=== PATIENT | female | born 1940 | race Caucasian/White ===

== ENCOUNTER → 2018-05-04 09:09 | Outpatient (CLI) | payer MEDICARE, SELFPAY ==
--- NOTE | 2018-05-04 | DI.MG.S_ITS ---
BILATERAL DIGITAL SCREENING MAMMOGRAM 3D/2D WITH CAD: 05/04/2018 CLINICAL: Routine screening. Family history of breast cancer. Comparison is made to exams dated: 04/16/2017 mammogram, 04/15/2016 mammogram, and 04/11/2015 mammogram - [facility]. There are scattered fibroglandular elements in both breasts. Current study was also evaluated with a Computer Aided Detection (CAD) system. No significant masses, calcifications, or other findings are seen in either breast. There has been no significant interval change. IMPRESSION: NEGATIVE There is no mammographic evidence of malignancy. A 1 year screening mammogram is recommended. This exam was interpreted at Station ID: [id number]. NOTE: For mammograms, a report in lay terms will be sent to the patient. Approximately 15% of breast malignancies will not be visualized mammographically. In the management of a palpable breast mass, a negative mammogram must not discourage biopsy of a clinically suspicious lesion. Electronically Signed By: Nick wu/mayela:05/04/2018 09:49:29 letter sent: Normal Exam ACR BI-RADS Category 1: Negative 3341F
== END ==
PROVIDERS: Family Provider Family Medicine; PCP Family Medicine; Visit Provider Family Medicine
DX: Z12.31 Encounter for screening mammogram for malignant neoplasm of breast (principal); Z80.3 Family history of malignant neoplasm of breast
CPT/HCPCS: 77063; 77067

== ENCOUNTER → 2018-08-27 14:51 | Outpatient (CLI) | payer MEDICARE, SELFPAY ==
--- NOTE | 2018-08-27 | DI.RAD.S_ITS ---
PROCEDURE: XR THORACIC SPINE 3V INDICATIONS: COMPRESSION FRACTURE TECHNIQUE: 2 views of the thoracic spine were acquired. COMPARISON: [facility], CT, PE STUDY (CTA CHEST), 11/27/2012, 14:17. [facility], CR, XR LUMBAR SPINE 2-3V, 08/27/2018, 14:44. FINDINGS: Bones: No fractures or dislocations. No suspicious bony lesions. 12 pairs of ribs are noted, and appear intact where visualized. T10 vertebral height reduction, chronicity uncertain, with the current vertebral heights 35% less at T10 than at the level immediately below. Soft tissues: No paravertebral stripe thickening. IMPRESSION: There is a reduction in the vertebral height of T10, chronicity uncertain, with a 35% height reduction at T10 when compared to T11. MR scanning can accurately assess for chronicity of this injury. No osteolytic or blastic bone lesion is associated. Dictated by: Lawrence Olmos M.D. on 08/27/2018 at 15:48 Approved by: Lawrence Olmos M.D. on 08/27/2018 at 15:52
--- NOTE | 2018-08-27 | DI.RAD.S_ITS ---
PROCEDURE: XR LUMBAR SPINE 2-3V INDICATIONS: COMPRESSION FRACTURE TECHNIQUE: 3 views of the lumbar spine were acquired. COMPARISON: None. FINDINGS: Bones: 5 [id number] vertebrae are present. There is normal bony alignment. No vertebral body compression fractures. No suspicious bony lesions. Soft tissues: Overlying bowel gas pattern is normal. No suspicious soft tissue calcifications. IMPRESSION: Only a small degree of degenerative disc disease and facet osteoarthritis is present and no compression fractures found. Please also refer to the thoracic spine study from today identifying a 35% T10 vertebral height reduction, but chronicity is uncertain . Dictated by: Lawrence Olmos M.D. on 08/27/2018 at 15:52 Approved by: Lawrence Olmos M.D. on 08/27/2018 at 15:53
== END ==
PROVIDERS: Family Provider Family Medicine; PCP Family Medicine; Visit Provider Chiropractor
DX: M51.36 Other intervertebral disc degeneration, lumbar region (principal); M47.816 Spondylosis without myelopathy or radiculopathy, lumbar region
CPT/HCPCS: 72072; 72100

== ENCOUNTER → 2018-09-30 10:02 | Outpatient (CLI) | payer MEDICARE, SELFPAY ==
--- NOTE | 2018-09-30 | DI.RAD.S_ITS ---
PROCEDURE: XR THORACIC SPINE 2V INDICATIONS: BACK PAIN FOLLOW UP T10 FRACTURE TECHNIQUE: 2 views of the thoracic spine were acquired. COMPARISON: [facility] [place], CR, XR THORACOLUMBAR SPINE 2 VIEWS, 09/15/2018, 8:41. [facility], CR, XR THORACIC SPINE 3V, 08/27/2018, 14:44. FINDINGS: Bones: No previously unidentified fractures or dislocations. The moderate compression fracture at T10 has not appreciably worsened from the comparison study in August when it was first identified. No suspicious bony lesions. 12 pairs of ribs are noted, and appear intact where visualized. Slight convex leftward scoliosis centered at the junction of the middle and lower thirds of the thoracic spine is again seen. Soft tissues: No paravertebral stripe thickening. IMPRESSION: T10 moderate compression fracture stable over time, no new trauma found. Mild convex leftward scoliosis centered at the junction of the middle and lower thirds of the thoracic spine appears stable. Dictated by: Lawrence Olmos M.D. on 09/30/2018 at 10:38 Approved by: Lawrence Olmos M.D. on 09/30/2018 at 10:40
== END ==
PROVIDERS: Family Provider Family Medicine; PCP Family Medicine; Visit Provider Family Medicine
DX: M54.6 Pain in thoracic spine (principal); M41.84 Other forms of scoliosis, thoracic region; M48.54XS Collapsed vertebra, not elsewhere classified, thoracic region, sequela of fracture
CPT/HCPCS: 72070

== ENCOUNTER → 2019-07-15 10:18 | Outpatient (CLI) | payer MEDICARE, SELFPAY ==
--- NOTE | 2019-07-15 | DI.MG.S_ITS ---
BILATERAL DIGITAL SCREENING MAMMOGRAM 3D/2D WITH CAD: 07/15/2019 CLINICAL: Routine screening. Family history of breast cancer. Comparison is made to exams dated: 05/04/2018 mammogram, 04/16/2017 mammogram, 04/15/2016 mammogram, 04/11/2015 mammogram, and 04/06/2014 mammogram - [facility]. There are scattered fibroglandular elements in both breasts. Current study was also evaluated with a Computer Aided Detection (CAD) system. No significant masses, calcifications, or other findings are seen in either breast. There has been no significant interval change. IMPRESSION: NEGATIVE There is no mammographic evidence of malignancy. A 1 year screening mammogram is recommended. This exam was interpreted at Station ID: [id number]. NOTE: For mammograms, a report in lay terms will be sent to the patient. Approximately 15% of breast malignancies will not be visualized mammographically. In the management of a palpable breast mass, a negative mammogram must not discourage biopsy of a clinically suspicious lesion. Electronically Signed By: Alfie gaming/mayela:07/15/2019 12:10:37 letter sent: Normal Exam ACR BI-RADS Category 1: Negative 3341F
== END ==
PROVIDERS: PCP Family Medicine; Visit Provider Family Medicine
DX: Z12.31 Encounter for screening mammogram for malignant neoplasm of breast (principal); Z80.3 Family history of malignant neoplasm of breast
CPT/HCPCS: 77063; 77067

== ENCOUNTER → 2020-10-06 14:58 | Outpatient (CLI) | payer MEDICARE, SELFPAY ==
--- NOTE | 2020-10-06 15:15 | DI.MG.S_ITS ---
Patient Name: JOSELITO MATHIAS date: 1940 Sex: F Attending Physician: Dionicio Indications: Date: 10/06/2020 15:07 At the request of: JEWEL VALENTE Procedure: MM screening mammo BI BILATERAL DIGITAL SCREENING MAMMOGRAM 3D/2D WITH CAD: 10/06/2020 CLINICAL: Routine screening. Family history of breast cancer. Comparison is made to exams dated: 07/15/2019 mammogram, 05/04/2018 mammogram, 04/16/2017 mammogram, 04/15/2016 mammogram, and 04/11/2015 mammogram - [facility]. There are scattered fibroglandular elements in both breasts. Current study was also evaluated with a Computer Aided Detection (CAD) system. No significant masses, calcifications, or other findings are seen in either breast. There has been no significant interval change. IMPRESSION: NEGATIVE There is no mammographic evidence of malignancy. A 1 year screening mammogram is recommended. This exam was interpreted at Station ID: [id number]. NOTE: For mammograms, a report in lay terms will be sent to the patient. Approximately 15% of breast malignancies will not be visualized mammographically. In the management of a palpable breast mass, a negative mammogram must not discourage biopsy of a clinically suspicious lesion. Electronically Signed By: Edmundo melgoza/mayela:10/08/2020 07:58:31 letter sent: Normal Exam ACR BI-RADS Category 1: Negative 3341F
== END ==
PROVIDERS: PCP Family Medicine; Referring Provider Family Medicine; Visit Provider Family Medicine
DX: Z12.31 Encounter for screening mammogram for malignant neoplasm of breast (principal)
CPT/HCPCS: 77063; 77067

== ENCOUNTER → 2021-01-03 08:09 | Outpatient (CLI) | payer MEDICARE, SELFPAY ==
--- NOTE | 2021-01-03 | DI.RAD.S_ITS ---
PROCEDURE: XR RIBS RT MIN 3V W CXR 1V INDICATIONS: RIGHT RIB PAIN TECHNIQUE: 3 views of the right ribs were acquired, along with a single view chest. COMPARISON: None. FINDINGS: Surgical changes and devices: None. Bones and chest wall: No fractures or dislocations. No suspicious bony lesions. Overlying soft tissues appear unremarkable. Lungs and pleura: No pleural effusions or pneumothorax. Lungs appear clear. Mediastinum: Mediastinal contours appear normal. Heart size is normal. IMPRESSION: No right rib fracture identified. Dictated by: Krishna Doherty M.D. on 01/03/2021 at 8:30 Approved by: Krishna Doherty M.D. on 01/03/2021 at 8:32
--- NOTE | 2021-01-03 | DI.MRI.S_ITS ---
PROCEDURE: MR LUMBAR SPINE WO CON INDICATIONS: Pain in right leg TECHNIQUE: Noncontrast sagittal T1 spin echo and T2 fast echo, sagittal STIR, axial T1 and T2 fast spin echo through the lumbar spine. In cases with scoliosis, additional coronal T2 fast spin echo may be performed. COMPARISON: [facility] [place], CR, XR THORACOLUMBAR SPINE 2 VIEWS, 11/19/2018, 16:07. [facility], , L-SPINE WITHOUT CONTRAST, 07/26/2008, 20:41. FINDINGS: Image quality: Excellent. Alignment and Curvature: There is grade 1 anterolisthesis of L5 on S1 measuring 2 mm. Bone Marrow: Marrow is of normal overall signal. Increased T1-T2 signal is noted T12 consistent with hemangioma and unchanged. No acute vertebral body compression fractures. Spinal Cord: Conus medullaris terminates at the L1 level. Visualized cord demonstrates normal signal and size. 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 Paraspinous Soft Tissues: No paravertebral masses. Discs: Mild moderate desiccation is present throughout the lumbar spine most notable at L5-S1. L1-L2: No disc bulge, spinal stenosis or foraminal narrowing. Mild facet and ligamentum flavum hypertrophy. Minimal epidural lipomatosis. Minimal interval progression. L2-L3: No disc bulge, spinal stenosis or foraminal narrowing. Mild facet and ligamentum flavum hypertrophy as well as minimal epidural lipomatosis. Minimal interval progression. L3-L4: Minimal disc bulge without spinal stenosis or foraminal narrowing. Facet and ligamentum flavum hypertrophy as well as minimal epidural lipomatosis is present. Minimal interval progression. L4-L5: Mild disc bulge with minimal canal narrowing. Minimal to mild bilateral foraminal narrowing with facet and ligamentum flavum hypertrophy. No interval change. L5-S1: Minimal disc bulge without spinal stenosis. Minimal to mild bilateral foraminal narrowing. Minimal interval progression. IMPRESSION: 1. Multilevel degenerative changes demonstrating minimal areas of interval progression compared to 2007 as above. 2. Minimal canal narrowing is noted at L4-5 secondary to disc bulge. 3. Minimal to mild foraminal narrowing is noted at L4-5 and L5-S1 secondary to facet arthropathy. Dictated by: Gayle Palacio M.D. on 01/03/2021 at 9:28 Approved by: Gayle Palacio M.D. on 01/03/2021 at 9:40
== END ==
PROVIDERS: PCP Family Medicine; Referring Provider Family Medicine; Visit Provider Family Medicine
DX: M79.604 Pain in right leg (principal); M47.816 Spondylosis without myelopathy or radiculopathy, lumbar region; R07.81 Pleurodynia
CPT/HCPCS: 71101; 72148

== ENCOUNTER → 2021-02-20 09:22 | Outpatient (CLI) | payer MEDICARE, SELFPAY ==
[2021-02-20 11:37] LABS: COVID19 -Nasal RAPID Negative (Negative)
== END ==
PROVIDERS: PCP Family Medicine; Visit Provider Physician Assistant
DX: Z01.812 Encounter for preprocedural laboratory examination (principal); Z20.822 Contact with and (suspected) exposure to COVID-19
CPT/HCPCS: 87635; C9803

== ENCOUNTER 2021-02-22 13:32 | Day surgery (SDC) | payer MEDICARE, SELFPAY ==
--- NOTE | 2021-02-22 | PATH_ITS ---
[facility] Accession Number: [id number] . 01 Material submitted: . cecum - CECAL POLYP 3MM . 02 Diagnosis: Cecum, Polyp 3 mm, Biopsy: Tubular adenoma. [facility] 02/26/2021 1536 Local . 02 Electronically signed: . Georgie Ramirez MD, Pathologist NPI- [id number] . 01 Gross description: . CECAL POLYP 3MM: Received in formalin is 1 fragment(s) of paris, soft tissue measuring 0.4 x 0.3 x 0.2 cm submitted entirely in 1 cassette(s) /QBJ 02/23/2021 0443 Local . 02 Pathologist provided ICD-10: D12.0 . 02 CPT . 817396 Performed at: 01 [facility] [address] [place] [address], [place], [place] [id number] MD Nick Fajardo MD Phone: [phone] Performed at: 02 [facility] [address] [place], [place] [id number] MD Georgie Ramirez MD Phone: [phone]
--- NOTE | 2021-02-22 12:03 | P.HP_ITS ---
History of Present Illness History of Present Illness Date Patient Seen: 02/22/21 Chief complaint: SDC Narrative: 80 year old female comes in today for consideration of a screening colonoscopy. One prior colonoscopy approximately 10 years ago, normal. There have been no lower GI symptoms suggesting disease such as change in bowel habits, bleeding, abdominal pain or anemia. There's been no family history of colon cancer or colon polyps. Overall health issues have been stable, including no major cardiac events for at least 6 weeks. PCP: Dr. Greenberg Past medical history: Erythema multiforme Hoarseness Pronation syndrome Lichen sclerosis Migraine Hyperlipidemia Scoliosis Degenerative joint disease Osteoporosis GERD Menopause Herpes labialis Past surgical history: Tonsillectomy Total hysterectomy with bilateral salpingo-oophorectomy, 1980 Mohs procedure, basal cell, 2016 Colonoscopy Family history: Father:, alcoholism, hypertension, coronary artery disease Mother: ALS Social history: to [place], 3 children. Works as a clerk travel reservations. Patient History Medical History (Updated 02/22/21 @ 13:35 by Caitlin Burgess RN) H/O migraine Lichen sclerosus Surgical History (Updated 02/22/21 @ 13:34 by Caitlin Burgess RN) H/O total hysterectomy with bilateral salpingo-oophorectomy (BSO) Hx of tonsillectomy Status post dilation and curettage Status post hysterectomy with oophorectomy Status post tonsillectomy and adenoidectomy Meds Home Medications and Allergies Home Medications Medication Instructions Recorded Confirmed Type estradiol 0.5 mg PO QDAY #0 11/27/12 02/22/21 History esomeprazole magnesium 40 mg PO DAILY 02/22/21 02/22/21 History zoledronic [id number] See Rx Instructions .ROUTE .COMPLEX 02/22/21 02/22/21 History [Reclast] Allergies Allergy/AdvReac Type Severity Reaction Status Date / Time cyclobenzaprine Allergy Unknown Verified 02/22/21 13:46 loperamide [From Imodium A-D] Allergy Unknown Verified 02/22/21 13:46 adhesive tape AdvReac Severe Rash Verified 02/22/21 13:46 METHIOLADE/IODINE TOPICAL Allergy Severe RASH Uncoded 02/22/21 13:46 Review of Systems Review of Systems ROS: Yes All systems reviewed with the patient and are negative except as otherwise documented Exam Narrative Exam Narrative: GENERAL: Alert and oriented, appearing stated age and in no acute distress. HEENT: Head normocephalic/atraumatic. Pupils equal, round, and reactive to light and accomodation. Extraocular muscles intact. Tympanic membranes clear. Nasal mucosa moist, septum midline. Oral mucosa moist, no lesions. Neck soft and supple, no lymphadenopathy. LUNGS: Clear to ausculation bilaterally, no wheezes, rhonchi or rales. CV: Normal S1 and S2 with regular rate and rhythm, no audible murmurs, rubs or gallops. ABDOMEN: Soft, non-tender, non-distended, no organomegaly. Positive bowel sounds. EXTREMITIES: No clubbing, cyanosis, or edema. NEURO: Cranial nerves II through XII grossly intact, no focal deficits. PSYCH: Alert and oriented x 3. SKIN: No concerning lesions. Assessment & Plan Assessment & Plan narrative: 1. Screening for colon cancer Plan for colonoscopy. The nature and character of the procedure as well as anticipated results were discussed. The possibility of not completing the procedure was also discussed. Possible complications including aspiration pneumonia, bleeding, perforation and reaction to medications either for sedation or preparation and missed lesions were discussed. Questions were answered and proceeding to the colonoscopy was elected. Informed consent signed. I sincerely appreciate the referral allowing me to participate in this patient's care. Please contact me with any questions or concerns.
--- NOTE | 2021-02-22 12:10 | PM.OP.ENDO ---
Operative Date/Time/Diagnoses Date of procedure: 02/22/21 Procedure Notes SCOAP/Timeout: 4:21 p.m. Procedure in detail: ENDOSCOPIST: Katrina Eckert MD Sedation RN: Cristiano Zavaleta RN Sedation start time: 4:22 p.m. Sedation end time: 4:47 p.m. PROCEDURE: Colonoscopy with biopsy INDICATIONS: 1. Screening for colon cancer MEDICATION: Levsin 0.125 mg sublingual, incremental doses of Versed and fentanyl until appropriate level sedation achieved. ASA CLASS: 2 CECAL WITHDRAWAL TIME: 8 minutes COMPLICATIONS: None. EXTENT OF PROCEDURE: Cecum. QUALITY OF PREP: Good with portions of liquid stool. PROCEDURE: Prior to insertion of the colonoscope, a digital rectal examination was accomplished with circumferential palpation of the distal rectal mucosa without significant findings being noted. The high-definition pediatric colonoscope was passed into the rectum in the usual fashion and advanced over to the cecum without difficulty. The ileocecal valve, appendiceal stoma, and medial wall all could be inspected and a 3 mm polyp was seen and removed with cold biopsy forceps. ASCENDING COLON: As the colonoscope was withdrawn, care was taken to expose and inspect the haustral folds and no abnormalities were seen. HEPATIC FLEXURE: Normal, no polyps, diverticula or other abnormalities. TRANSVERSE COLON: Normal, no polyps, diverticula or other abnormalities. DESCENDING COLON: Normal, no polyps, diverticula or other abnormalities. SIGMOID COLON: Normal, no polyps, diverticula or other abnormalities. RECTUM: Normal. J maneuver was produced. There was no significant perianal disease. The J maneuver was broken. The remainder of the rectum was inspected and there was no external hemorrhoid disease. The scope was withdrawn. IMPRESSION: 1. Cecal polyp x1, 3 mm, removed with cold biopsy forceps PLAN: 1. Follow-up in clinic status post pathology results. The possibility of a missed lesion including a malignancy has been discussed with the patient previously. Potential alarm symptoms have been discussed and should be reported immediately.
[2021-02-22] MEDS: HYOSCYAMINE 0.125 MG TABLET PO (13:49)
[2021-02-22] MEDS: LACTATED RINGERS 1,000 ML 200 ML IV (13:57)
[2021-02-22 13:58] VITALS: BP 158/93; PULSE 88; RESP 14; TEMP 36.2; O2SAT 99; BMI 22.6
[2021-02-22] MEDS: MIDAZOLAM 5 MG/5 ML VIAL IV (16:50)
[2021-02-22 16:51] VITALS: BP 135/63; PULSE 82; RESP 18; TEMP 36.7; O2SAT 94
[2021-02-22] MEDS: fentaNYL 250 MCG/5 ML INJ IV (16:51)
[2021-02-22 16:56] VITALS: BP 136/64; PULSE 71; RESP 10; O2SAT 94
[2021-02-22 17:02] VITALS: BP 134/62; PULSE 80; RESP 14; O2SAT 96
[2021-02-22 17:09] VITALS: BP 152/81; PULSE 70; RESP 16; TEMP 36.8; O2SAT 96
== END 2021-02-22 17:20 | disposition home or self-care (01) ==
PROVIDERS: PCP Family Medicine; Referring Provider Student in an Organized Health Care Education/Training Program; Visit Provider Student in an Organized Health Care Education/Training Program
PROC: 0DJD8ZZ Inspection of Lower Intestinal Tract, Via Natural or Artificial Opening Endoscopic (ICD-10-PCS; CPT 45378; principal; 2021-02-22 14:30)
DX: Z12.11 Encounter for screening for malignant neoplasm of colon (principal); D12.0 Benign neoplasm of cecum
CPT/HCPCS: 45380; J2250; J3010

== ENCOUNTER → 2021-03-21 11:18 | Outpatient (CLI) | payer MEDICARE, SELFPAY ==
--- NOTE | 2021-03-21 11:22 | DI.RAD.S_ITS ---
PROCEDURE: XR KNEE RT 3V INDICATIONS: RIGHT KNEE PAIN TECHNIQUE: 3 views of the knee were acquired. COMPARISON: [facility], , KNEE 3V RIGHT, 08/23/2012, 12:21. FINDINGS: Bones: No fractures or dislocations. No suspicious bony lesions. Mild tricompartmental periarticular osteophyte formation. Soft tissues: No joint effusion. No suspicious soft tissue calcifications. IMPRESSION: Osteoarthritis. No acute fracture. No osseous lesion. If symptoms and/or clinical suspicion for pathology persist, further assessment with repeat, or advanced imaging (e.g., CT, MRI, or bone scan) may be helpful for further assessment. Dictated by: Carlos Graves M.D. on 03/21/2021 at 16:50 Approved by: Carlos Graves M.D. on 03/21/2021 at 16:52
== END ==
PROVIDERS: PCP Family Medicine; Referring Provider Physical Medicine & Rehabilitation; Visit Provider Physical Medicine & Rehabilitation
DX: M17.11 Unilateral primary osteoarthritis, right knee (principal)
CPT/HCPCS: 73562

== ENCOUNTER 2021-03-22 12:56 | Emergency (ER) | payer MEDICARE, SELFPAY ==
[2021-03-22 12:58] VITALS: BP 168/81; PULSE 110; RESP 19; TEMP 36.2; O2SAT 96; BMI 23.2
[2021-03-22] MEDS: SODIUM CHLORIDE 0.9% 1,000 ML 1000 ML IV (13:29)
[2021-03-22 13:45] LABS: Alanine Aminotransferase 18 IU/L (<35); Albumin 4.1 g/dL (3.5-5.0); Albumin Globulin Ratio 1.5 (1.0-2.8); Alkaline Phosphatase 49 U/L (38-126); Aspartate Aminotransferase 21 IU/L (14-36); BUN Creatinine Ratio 22.7 (6-22); Bilirubin Total 0.5 mg/dL (0.2-1.3); Blood Urea Nitrogen 20 mg/dL (7-17); Calcium 9.2 mg/dL (8.4-10.2); Carbon Dioxide 18 mmol/L (22-32); Chloride 104 mmol/L (98-107); Estimated Glomerular Filt Rate > 60.0 mL/min (>60); Globulin 2.8 g/dL (1.7-4.1); Glucose 132 mg/dL (80-110); HEMOLYSIS 22 (0-50); Potassium 4.3 mmol/L (3.4-5.1); Sodium 133 mmol/L (137-145); Total Protein 6.9 g/dL (6.3-8.2)
[2021-03-22 14:09] LABS: Lactate (Lactic Acid) 2.1 mmol/L (0.7-2.1)
--- NOTE | 2021-03-22 14:10 | ED_ITS ---
HPI - Nausea/Vomiting/Diarrhea General Chief complaint: Nausea/Vomiting/Diarrhea Stated complaint: diarrhea/leg cramps/dehydrated Time Seen by Provider: 03/22/21 13:39 Source: patient and family Mode of arrival: Ambulatory Limitations: no limitations History of Present Illness HPI Narrative: Patient is a 80-year-old female who presents with diarrhea which started last night. She says this started last evening she has had multiple episodes liquid watery diarrhea. She has no abdominal pain nausea or vomiting. No low-grade fever. No sick contacts. No recent antibiotics or un peer naima water. She says since 11:00 a.m. it has slowed but she still has it. She denies dizziness lightheadedness or syncope. No chest pain or palpitations. She denies any blood. MD complaint: diarrhea Onset (ago): hour(s) Description of Diarrhea: watery Related Data Home Medications Medication Instructions Recorded Confirmed estradiol 0.5 mg PO QDAY #0 11/27/12 02/22/21 esomeprazole magnesium 40 mg PO DAILY 02/22/21 02/22/21 zoledronic [id number] See Rx Instructions .ROUTE .COMPLEX 02/22/21 02/22/21 [Reclast] Allergies Allergy/AdvReac Type Severity Reaction Status Date / Time cyclobenzaprine Allergy Unknown Verified 03/22/21 13:16 loperamide [From Imodium A-D] Allergy Unknown Verified 03/22/21 13:16 adhesive tape AdvReac Severe Rash Verified 03/22/21 13:16 METHIOLADE/IODINE TOPICAL Allergy Severe RASH Uncoded 02/22/21 13:46 Review of Systems Review of Systems Narrative: GENERAL: Denies chills, fatigue, malaise, fever, sweats, travel HEENT: Denies sinus pain, ear pain, sore throat, difficulty swallowing, neck pain RESPIRATORY: Denies dyspnea, cough, wheezing, hemoptysis, sputum. CARDIOVASCULAR: Denies chest pain, palpitations, orthopnea, edema GASTROINTESTINAL: See HP PI : Denies dysuria, frequency, incontinence, hematuria, urinary retention, flank pain. MUSCULOSKELETAL: Denies weakness, joint pain, or bony pain SKIN: No rash, no erythema, no pruritus NEUROLOGIC: Denies weakness, dizziness, headache, numbness, change in speech, confusion PSYCHIATRIC: No concerning psychosocial issues. 12 point review of systems is negative except for those stated above and HPI Patient History Medical History H/O migraine Lichen sclerosus Right knee DJD Surgical History H/O total hysterectomy with bilateral salpingo-oophorectomy (BSO) Hx of tonsillectomy Status post dilation and curettage Status post hysterectomy with oophorectomy Status post tonsillectomy and adenoidectomy Social History household members: spouse Smoking Status: Never smoker alcohol intake: current Smoking Status: Never smoker alcohol intake frequency: holidays/special occasions only Substance Use Type: does not use Exam Initial Vital Signs Initial Vital Signs: Vital Signs Temperature 97.1 F L 03/22/21 12:58 Pulse Rate 110 H 03/22/21 12:58 Respiratory Rate 19 03/22/21 12:58 Blood Pressure 168/81 H 03/22/21 12:58 Pulse Oximetry 96 03/22/21 12:58 GENERAL: Well-appearing, well-nourished and in no acute distress. HEENT: Head atraumatic,EOMI, pupils reactive, face symmetric, moist mucous membranes CARDIOVASCULAR: Regular rate and rhythm without murmurs, rubs or gallops. RESPIRATORY: Breath sounds equal bilaterally, no wheezes rales or rhonchi. ABDOMEN: Soft, nontender. Normoactive bowel sounds all 4 quadrants. No guarding or rebound. EXTREMITIES: Normal range of motion, no clubbing or edema. Neurovascularly intact NEUROLOGICAL: Alert and oriented x4.Normal gait and speech. Cranial nerves II through XII grossly intact. SKIN: Warm, dry, no laceration, no petechiae, no rashes or lesions. Course Orders Ordered: ED Orders 03/22/21 13:10 Comprehensive Metabolic Panel Stat Lactate (Lactic Acid) Stat 03/22/21 14:21 Complete Blood Count AUTO DIFF Stat Discontinued Medications Sodium Chloride (Normal Saline 0.9%) 1,000 mls @ 1,000 mls/hr IV BOLUS ONE Stop: 03/22/21 14:16 Last Infusion: 03/22/21 15:26 Dose: 0 mls/hr Documented by: Admin: 03/22/21 13:29 Dose: 1,000 mls/hr Documented by: BERNADETTE Ketorolac Tromethamine (Ketorolac 30 Mg/Ml Vial) 15 mg IV NOW ONE Stop: 03/22/21 15:27 Last Admin: 03/22/21 15:51 Dose: 15 mg Documented by: BERNADETTE Vital Signs Vital signs: Vital Signs - 8 hr 03/22/21 12:58 03/22/21 15:02 03/22/21 15:03 Temperature 97.1 F L Pulse Rate 110 H 91 H 89 Respiratory Rate 19 Blood Pressure 168/81 H 162/74 H Pulse Oximetry 96 97 97 03/22/21 15:30 03/22/21 16:00 Temperature Pulse Rate 97 H 94 H Respiratory Rate Blood Pressure 138/75 Pulse Oximetry 96 95 MDM - Nausea/Vomiting/Diarrhea Lab Data Attestation: I reviewed the patient's lab results. Result diagrams: 03/22/21 14:21 03/22/21 13:10 Labs: Lab Results 03/22/21 03/22/21 03/22/21 Range/Units 13:10 13:10 14:21 WBC 8.9 (4.5-11.0) X10^3/uL RBC 4.55 (4.0-5.2) X10^6/uL Hgb 14.5 (12.0-16.0) g/dL Hct 42.8 (36-46) % MCV 94.0 (80-100) fL MCH 31.8 (26-34) PG MCHC 33.8 (30-36) % RDW 12.8 (11.6-14.8) % Plt Count 251 (150-400) X10^3/uL Neut % (Auto) 89.8 H (50-75) % Lymph % (Auto) 4.1 L (25-40) % [place] % (Auto) 5.4 (3-14) % Eos % (Auto) 0.3 L (2-4) % Baso % (Auto) 0.4 (0-2) % Neut # (Auto) 8000 H (1137-7833) /uL Lymph # (Auto) 400 L (0755-2555) /uL [place] # (Auto) 500 (0-900) /uL Eos # (Auto) 0 (0-450) /uL Baso # (Auto) 0 (0-100) /uL Sodium 133 L (137-145) mmol/L Potassium 4.3 (3.4-5.1) mmol/L Chloride 104 (98-107) mmol/L Carbon Dioxide 18 L (22-32) mmol/L BUN 20 H (7-17) mg/dL Creatinine 0.88 (0.52-1.04) mg/dL Estimated GFR > 60.0 (>60) mL/min BUN/Creatinine Ratio 22.7 H (6-22) Glucose 132 H (80-110) mg/dL Lactate 2.1 (0.7-2.1) mmol/L Calcium 9.2 (8.4-10.2) mg/dL Total Bilirubin 0.5 (0.2-1.3) mg/dL AST 21 (14-36) IU/L ALT 18 (<35) IU/L Alkaline Phosphatase 49 (38-126) U/L Total Protein 6.9 (6.3-8.2) g/dL Albumin 4.1 (3.5-5.0) g/dL Globulin 2.8 (1.7-4.1) g/dL Albumin/Globulin Ratio 1.5 (1.0-2.8) Urine Dip Bedside Urine Glucose Negative Bedside Urine Bilirubin - Negative Bedside Urine Ketone - Negative Urine Specific [place] 1.015 Bedside Urine Occult Blood - Negative Bedside Urine pH 6.0 Bedside Urine Protein - Negative Bedside Urine Urobilinogen - Negative Bedside Urine Nitrite - Negative Bedside Urine Leukocytes - Negative Esterase MDM Narrative Medical decision making narrative: Patient has not had diarrhea while in the emergency department. CO2 slightly low 18 he is given 1 L of fluid she has urinated in the ED the. At this time recommend outpatient stool sample. She is having mild headache for which she is given Toradol for, tolerating oral fluids. At this time no further intervention required. Patient overall appears well Discharge Plan Departure Patient Disposition: Home Clinical Impression: Diarrhea Instructions: Diarrhea Activity Restrictions/Additional Instructions: 1) You have been diagnosed with diarrhea 2) What to do: Drink frequent but small amounts of fluids. If continuing to have lots of diarrhea please talk with her primary care provider in regards to outpatient stool sample. If diarrhea is becoming persistent and uncontrolled return to the emergency department I recommend Gatorade or a Gatorade-like product, as it has small amounts of sugar and salts that improve fluid retention. 3) Take medications as directed 4) Follow up with your primary care provider in 2-3 days [and follow up with ortho, urology etc] 5) Return to ER if you should have any new or worsening symptoms such as, unable to hold down fluids despite use of anti-nausea medications and the small volume oral rehydration strategy. Prescriptions: No Action estradiol 0.5 MG tablet 0.5 mg PO QDAY Qty: 0 RF: 0 esomeprazole magnesium 40 mg capsule,delayed release(DR/EC) 40 mg PO DAILY RF: 0 zoledronic [id number] [Reclast] 5 mg/100 mL Piggyback See Rx Instructions .ROUTE .COMPLEX RF: 0 Referrals: Alessandro Greenberg MD [Primary Care Provider] -
[2021-03-22 14:26] LABS: Add Manual Diff / Slide Review NO; Basophils Absolute Auto 0 /uL (0-100); Basophils Percent Auto 0.4 % (0-2); Eosinophils Absolute Auto 0 /uL (0-450); Eosinophils Percent Auto 0.3 % (2-4); Hematocrit 42.8 % (36-46); Hemoglobin 14.5 g/dL (12.0-16.0); Lymphocytes Absolute Auto 400 /uL (1100-4500); Lymphocytes Percent Auto 4.1 % (25-40); Mean Corpuscular HGB Conc 33.8 % (30-36); Mean Corpuscular Hemoglobin 31.8 PG (26-34); Monocytes Absolute Auto 500 /uL (0-900); Monocytes Percent Auto 5.4 % (3-14); Neutrophils Absolute Auto 8000 /uL (1500-7000); Neutrophils Percent Auto 89.8 % (50-75); Platelet Count 251 X10^3/uL (150-400); Red Blood Cell Count 4.55 X10^6/uL (4.0-5.2); Red Cell Distribution Width 12.8 % (11.6-14.8); White Blood Cell Count 8.9 X10^3/uL (4.5-11.0)
[2021-03-22 15:02] VITALS: PULSE 91; O2SAT 97
[2021-03-22 15:03] VITALS: BP 162/74; PULSE 89; O2SAT 97
--- NOTE | 2021-03-22 15:20 | PC.NURSE ---
Has not had diarrhea since she arrived in the ED.
[2021-03-22 15:30] VITALS: PULSE 97; O2SAT 96
[2021-03-22] MEDS: KETOROLAC 30 MG/ML VIAL 15 MG IV (15:51)
[2021-03-22 16:00] VITALS: BP 138/75; PULSE 94; O2SAT 95
[2021-03-22 16:01] LABS: Reflexed Lactate in 2 Hours Y
== END 2021-03-22 16:15 | disposition home or self-care (01) ==
PROVIDERS: Emergency Provider Emergency Medicine; PCP Family Medicine
DX: R19.7 Diarrhea, unspecified (principal)
CPT/HCPCS: 36415; 80053; 81003; 83605; 85025; 96361; 96374; 99284; J1885

== ENCOUNTER → 2021-05-03 09:12 | Outpatient (CLI) | payer MEDICARE, SELFPAY ==
--- NOTE | 2021-05-03 09:13 | DI.US.S_ITS ---
PROCEDURE: US CAROTID DOPPLER BI INDICATIONS: PVD TECHNIQUE: Color and pulse Doppler interrogation was performed of both carotid systems, with image documentation and velocity measurements. COMPARISON: [facility], , US CAROTID DOPPLER, 04/10/2004, 8:47. FINDINGS: Stenosis calculations are based on SRU (Society of Radiologists in Ultrasound) criteria. The flow velocities and the arterial waveforms are normal within both carotid arterial systems. Atherosclerotic plaque is seen on both sides, left worse than right. The estimated degree of internal carotid artery stenosis is less than 50%. Antegrade flow is confirmed within both vertebral arteries. IMPRESSION: No hemodynamically significant stenosis is seen. Stable from 2003. Atherosclerotic plaque is noted bilaterally, left worse than right. Dictated by: Ronal Esparza M.D. on 05/03/2021 at 8:50 Approved by: Ronal Esparza M.D. on 05/03/2021 at 8:51
== END ==
PROVIDERS: PCP Family Medicine; Referring Provider Family Medicine; Visit Provider Family Medicine
DX: I65.23 Occlusion and stenosis of bilateral carotid arteries (principal); I73.9 Peripheral vascular disease, unspecified
CPT/HCPCS: 93880

== ENCOUNTER → 2021-05-29 11:20 | Outpatient (CLI) | payer MEDICARE, SELFPAY ==
[2021-05-29 12:43] LABS: COVID19 -Nasal RAPID Negative (Negative)
== END ==
PROVIDERS: PCP Family Medicine; Visit Provider Physician Assistant
DX: Z01.812 Encounter for preprocedural laboratory examination (principal); Z20.822 Contact with and (suspected) exposure to COVID-19
CPT/HCPCS: 87635; C9803

== ENCOUNTER → 2021-05-31 07:39 | Outpatient (CLI) | payer MEDICARE, SELFPAY ==
--- NOTE | 2021-05-31 07:41 | DI.NM.S_ITS ---
PROCEDURE: NM IWONA PERF SPECT REST & STR Rest and exercise myocardial perfusion SPECT with gated imaging and ejection fraction RADIOPHARMACEUTICAL: 9.7 mCi Tc-99m sestamibi IV at rest and 25.5 mCi Tc-99m sestamibi IV at peak exercise. A one day-protocol was performed. INDICATIONS: Chest pain, unspecified TECHNIQUE: Radiopharmaceutical was injected at peak stress test, and also at rest. SPECT images were obtained. SPECT myocardial perfusion images were displayed in short axis, horizontal long axis, and vertical long axis views. Gated images were reviewed using [employer] software. COMPARISON: None. CARDIAC STRESS: A standard Mtahew treadmill exercise tolerance test was performed by the patient under the supervision of an attending staff. The patient exercised for 4 minutes and 47 seconds; functional aerobic impairment (ALIS) is +13%. Hemodynamic data: There is normal blood pressure and heart rate response to exercise stress. Patient achieved 87% of maximum predicted heart rate at peak exercise. Symptoms: Patient denied chest pain during exercise. EKG: Resting ECG shows sinus rhythm with T wave inversions in the anterolateral leads. No diagnostic EKG changes of ischemia with exercise; no ectopy. FINDINGS: Raw data: There is good myocardial labeling by radiotracer. No significant motion artifacts. Left ventricle function: Gated images demonstrate normal left ventricle wall thickening. No segmental wall motion abnormality. No transient ischemic dilation; TID is 0.79 (normal less than 1.3). The left ventricle resting end-diastolic volume is 62 mL. Left ventricle stress ejection fraction is 89%; normal values are above 45%. Myocardial perfusion: There is normal perfusion on stress prone images. IMPRESSION: Low risk, normal treadmill nuclear stress test. 1) No perfusion evidence of ischemia or infarction. 2) Normal left ventricular size, wall motion, and systolic function (EF post stress 89%). 3) No ECG evidence of ischemia with exercise. 4) No angina during the study. 5) Mildly reduced exercise capacity (5.7 METs, ALIS +13%). Target heat rate achieved. Appropriate BP response to exercise. 6) No prior nuclear stress test available for comparison. Dictated by: Sam Puente MD on 06/01/2021 at 9:40 Approved by: Sam Puente MD on 06/01/2021 at 9:44
== END ==
PROVIDERS: PCP Family Medicine; Referring Provider Family Medicine; Visit Provider Family Medicine
DX: R07.9 Chest pain, unspecified (principal)
CPT/HCPCS: 78452; 93017; A9502

== ENCOUNTER 2021-06-09 14:37 | Emergency (ER) | payer MEDICARE, SELFPAY ==
[2021-06-09 14:40] VITALS: BP 181/87; PULSE 94; RESP 16; TEMP 36.4; O2SAT 99
--- NOTE | 2021-06-09 15:08 | DI.US.S_ITS ---
PROCEDURE: US PERIPH VENOUS LOW EXTREM RT INDICATIONS: SWELLING POST SURGERY TECHNIQUE: Real-time imaging, as well as color and pulse Doppler interrogation, were performed of the lower extremity deep veins from the inguinal ligament to the popliteal fossa. COMPARISON: None. FINDINGS: The common femoral, femoral and popliteal veins are normally compressible, and free of intraluminal thrombus. Color and pulse Doppler demonstrate normal phasic intraluminal flow. There is normal augmentation response to distal compression maneuver. Mild soft tissue edema can be seen involving the calf/ankle. IMPRESSION: Negative for deep venous thrombosis. Dictated by: Ronal Esparza M.D. on 06/09/2021 at 15:50 Approved by: Ronal Esparza M.D. on 06/09/2021 at 15:51
--- NOTE | 2021-06-09 16:08 | ED.EXTPRO ---
HPI - Extremity Problem General Chief complaint: Extremity Problem,Nontraumatic Stated complaint: SWOLLEN LEG, POST SURGERY Time Seen by Provider: 06/09/21 15:01 Source: patient and family Mode of arrival: Ambulatory History of Present Illness HPI Narrative: Patient is a 80-year-old female who presents with peripheral vascular disease and recent stent in her right iliac artery. She had a procedure 2 days ago, she was released that afternoon. She has gone home and gone about her activities. She is taking it easy. She has noticed some swelling in her right foot. He she called the vascular surgeon on-call recommended she come to the emergency department for rule out DVT. She has no calf pain or swelling. She has no fever there is no erythema at the sites. She has no fever. She generally feels well. Related Data Home Medications Medication Instructions Recorded Confirmed estradiol 0.5 mg tablet 0.5 mg PO QDAY #0 11/27/12 05/15/21 esomeprazole magnesium 40 mg 40 mg PO DAILY 02/22/21 05/15/21 capsule,delayed release zoledronic acid 5 mg/100 mL in See Rx Instructions .ROUTE .COMPLEX 02/22/21 05/15/21 mannitol 5 %-water intravenous piggybck (Reclast) Allergies Allergy/AdvReac Type Severity Reaction Status Date / Time cyclobenzaprine Allergy Unknown Verified 05/15/21 09:45 loperamide [From Imodium A-D] Allergy Unknown Verified 05/15/21 09:45 adhesive tape AdvReac Severe Rash Verified 05/15/21 09:45 METHIOLADE/IODINE TOPICAL Allergy Severe RASH Uncoded 05/15/21 09:45 Review of Systems Review of Systems Narrative: GENERAL: Denies chills, fatigue, malaise, fever, sweats, travel HEENT: Denies sinus pain, ear pain, sore throat, difficulty swallowing, neck pain RESPIRATORY: Denies dyspnea, cough, wheezing, hemoptysis, sputum. CARDIOVASCULAR: Denies chest pain, palpitations, orthopnea, edema GASTROINTESTINAL: Denies nausea, vomiting, abdominal pain, diarrhea, constipation, melena. : Denies dysuria, frequency, incontinence, hematuria, urinary retention, flank pain. MUSCULOSKELETAL: See HPI SKIN: No rash, no erythema, no pruritus NEUROLOGIC: Denies weakness, dizziness, headache, numbness, change in speech, confusion PSYCHIATRIC: No concerning psychosocial issues. 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 Vascular claudication Surgical History H/O total hysterectomy with bilateral salpingo-oophorectomy (BSO) Hx of tonsillectomy Status post dilation and curettage Status post hysterectomy with oophorectomy Status post tonsillectomy and adenoidectomy Social History household members: spouse Smoking Status: Never smoker alcohol intake: current Smoking Status: Never smoker alcohol intake frequency: holidays/special occasions only Substance Use Type: does not use Exam Initial Vital Signs Initial Vital Signs: Vital Signs Temperature 97.6 F 06/09/21 14:40 Pulse Rate 94 H 06/09/21 14:40 Respiratory Rate 16 06/09/21 14:40 Blood Pressure 181/87 H 06/09/21 14:40 Pulse Oximetry 99 06/09/21 14:40 GENERAL: Well-appearing 80-year-old female and in no acute distress. HEENT: Head atraumatic,EOMI, pupils reactive, face symmetric, moist mucous membranes CARDIOVASCULAR: Regular rate and rhythm without murmurs, rubs or gallops. RESPIRATORY: Breath sounds equal bilaterally, no wheezes rales or rhonchi. ABDOMEN: Soft, nontender. Normoactive bowel sounds all 4 quadrants. No guarding or rebound. EXTREMITIES: Normal range of motion, no clubbing or edema. Neurovascularly intact NEUROLOGICAL: Alert and oriented x4. SKIN: Warm, dry, no laceration, no petechiae, no rashes or lesions. Site in right groin dressing in place no surrounding erythema no saturation of the band Course Orders Ordered: ED Orders 06/09/21 15:08 US periph venous low extrem rt Stat Vital Signs Vital signs: Vital Signs - 8 hr 06/09/21 14:40 Temperature 97.6 F Pulse Rate 94 H Respiratory Rate 16 Blood Pressure 181/87 H Pulse Oximetry 99 MDM - Extremity (Nontraumatic) Imaging Data US - DVT: Radiologist's Impression: PROCEDURE: US PERIPH VENOUS LOW EXTREM RT INDICATIONS: SWELLING POST SURGERY TECHNIQUE: Real-time imaging, as well as color and pulse Doppler interrogation, were performed of the lower extremity deep veins from the inguinal ligament to the popliteal fossa. COMPARISON: None. FINDINGS: The common femoral, femoral and popliteal veins are normally compressible, and free of intraluminal thrombus. Color and pulse Doppler demonstrate normal phasic intraluminal flow. There is normal augmentation response to distal compression maneuver. Mild soft tissue edema can be seen involving the calf/ankle. IMPRESSION: Negative for deep venous thrombosis. Dictated by: Ronal Esparza M.D. on 06/09/2021 at 15:50 MDM Narrative Medical decision making narrative: Patient has a good strong distal pedal pulse. Incision site is clean and dry no erythema. Calf is soft no sign of compartment syndrome. She really has very minimal swelling if any in her right lower leg most of it seems in the ankle and the foot. [id number] vascular surgery at [place] updated on patient's his test results. Recommend outpatient follow-up Discharge Plan Departure Patient Disposition: Home Clinical Impression: Edema of right lower extremity Instructions: Edema Activity Restrictions/Additional Instructions: *You have been diagnosed with lower extremity edema *What to do: At this time he has a good strong pulse in her foot which is rate. There is no blood clot noted in your leg. Elevate and ice as needed. *Continue to take medications as directed *Follow up with your primary care provider in 2-3 days *Return to ER if you should have increasing swelling, pain, fever, redness, shortness of breath or any new, worsening or concerning symptoms Prescriptions: No Action estradiol 0.5 MG tablet 0.5 mg PO QDAY Qty: 0 RF: 0 esomeprazole magnesium 40 mg capsule,delayed release(DR/EC) 40 mg PO DAILY RF: 0 zoledronic [id number] [Reclast] 5 mg/100 mL Piggyback See Rx Instructions .ROUTE .COMPLEX RF: 0 Referrals: Alessandro Greenberg MD [Primary Care Provider] -
== END 2021-06-09 17:24 | disposition home or self-care (01) ==
PROVIDERS: Emergency Provider Emergency Medicine; PCP Family Medicine
DX: R60.0 Localized edema (principal); Z98.890 Other specified postprocedural states
CPT/HCPCS: 93971; 99281; 99283

== ENCOUNTER → 2021-06-20 12:19 | Outpatient (CLI) | payer MEDICARE, SELFPAY ==
--- NOTE | 2021-06-20 | DI.RAD.S_ITS ---
PROCEDURE: XR CHEST 2V INDICATIONS: Dyspnea, unspecified TECHNIQUE: 2 views of the chest were acquired. COMPARISON: [facility], CT, PE STUDY (CTA CHEST), 11/27/2012, 14:17. [facility] [place], CR, XR THORACOLUMBAR SPINE 2 VIEWS, 10/22/2018, 13:26. [facility] [place], CR, XR THORACOLUMBAR SPINE 2 VIEWS, 11/19/2018, 16:07. [facility], CR, CHEST 2 VIEW, 11/27/2012, 13:21. FINDINGS: Surgical changes and devices: None. Lungs and pleura: Lungs are clear. No pleural effusions or pneumothorax. Mediastinum: Mediastinal contours are normal. Heart size is normal. Bones and chest wall: Age-indeterminate compression fracture of the T10 vertebral body is new when compared to the remote prior CT pulmonary angiogram from 11/27/2012. No suspicious bony abnormalities. Soft tissues appear unremarkable. IMPRESSION: 1. No acute cardiopulmonary disease. 2. Age indeterminate compression fracture of the T10 vertebral body. Dictated by: Gasper Chaudhary Tom Interpreted: Edil Wheeler MD on 06/20/2021 at 12:34 Transcribed by: ROSEANNA on 06/20/2021 at 12:36 Approved by: Edil Wheeler M.D. on 06/20/2021 at 13:08
== END ==
PROVIDERS: PCP Family Medicine; Referring Provider Family Medicine; Visit Provider Family Medicine
DX: R06.00 Dyspnea, unspecified (principal); M48.54XA Collapsed vertebra, not elsewhere classified, thoracic region, initial encounter for fracture
CPT/HCPCS: 71046

== ENCOUNTER → 2021-06-26 09:33 | Outpatient (CLI) | payer MEDICARE, SELFPAY ==
[2021-06-26 10:28] LABS: COVID19 -Nasal RAPID Negative (Negative)
== END ==
PROVIDERS: PCP Family Medicine; Referring Provider Internal Medicine; Visit Provider Internal Medicine
DX: Z20.822 Contact with and (suspected) exposure to COVID-19 (principal)
CPT/HCPCS: 87635; C9803

== ENCOUNTER → 2021-06-27 08:48 | Outpatient (CLI) | payer MEDICARE, SELFPAY ==
--- NOTE | 2021-07-03 11:24 | PM.PFT.1 ---
Pulmonary Function Test Referral & Results Date Patient Seen: 06/27/21 Requesting provider: Alessandro Greenberg Results: The spirometry demonstrates an FVC of 2.01 L which is 92% of predicted. The FEV1 was measured at 1.65 L which is 102% of predicted. The FEV1/FVC ratio was 82 which is 110% of predicted. Following the administration of bronchodilator there was no appreciable change to above normal numbers. Lung volumes show an SVC of 2.40 L which is 105% of predicted. The diffusing capacity was measured at 13.31 which is 70% of predicted. No hemoglobin value was provided, so no correction for potential anemia could be made, if appropriate. The maximum voluntary ventilation was normal Interpretation: This study demonstrates normal spirometry but mild reduction in diffusing capacity suggesting the possibility of some disease at the capillary alveolar level Clinical correlation suggested
== END ==
PROVIDERS: PCP Family Medicine; Referring Provider Family Medicine; Visit Provider Family Medicine
DX: R06.09 Other forms of dyspnea (principal)
CPT/HCPCS: 94060; 94726; 94729

== ENCOUNTER → 2021-07-23 13:45 | Outpatient (CLI) | payer MEDICARE, SELFPAY ==
--- NOTE | 2021-07-23 | DI.ECHO.S_ITS ---
Version: 1 Study ID: [id number] [address] [place] [address] Name: JOSELITO MATHIAS Study Date: 07/23/2021, 2: 01 PM : 1940 BP: 142 / 85 mmHg Gender: Female Height: 60 in Age: 81 Years Weight: 122 lb BSA: 1.51 mA? Ordering: JEWEL VALENTE Referring: JEWEL VALENTE Clinician: Eloina Marte Reason For Study: HYPERTENSION History: Summary Statements Normal sinus rhythm. Normal LV size, wall thickness, wall motion and LV systolic function. EF is 60-65%. Stage I diastolic dysfunction. Mildly dilated left atrium; otherwise normal chamber sizes. Mild aortic regurgitation; otherwise no significant valvular abnormalities. Mildly dilated ascending aorta. No prior study available for comparison. Procedure: A two-dimensional transthoracic echocardiogram with color flow and Doppler was performed. The study quality was technically adequate. There is no prior echocardiogram noted for this patient. The patient was in sinus rhythm with heart rates between 65-74 bpm during the exam. Left Ventricle: The ejection fraction is estimated to be 60-65%. The left ventricle is normal in size and wall thickness. Right Ventricle: The right ventricle is normal in size and function. Atria: There is no Doppler evidence for an interatrial shunt. The left atrium is mildly dilated. Right atrial size is normal. Mitral Valve: There is mild mitral regurgitation. The mitral valve is normal in structure and function. Aortic Valve: There is mild aortic regurgitation. There is no aortic valve stenosis. The aortic valve is trileaflet. The aortic valve opens well. Tricuspid Valve: There is mild tricuspid regurgitation. The right ventricular systolic pressure is estimated to be at least 29 mmHg based on an estimated right atrial pressure of 3 mm Hg. The tricuspid valve is normal in structure and function. Pulmonic Valve: There is trace pulmonic regurgitation. The pulmonic valve is not well seen, but is grossly normal. Great Vessels: The ascending aorta is mildly enlarged. The aortic root is normal size. The IVC is of normal diameter and collapses greater than 50% with a sniff. This suggests a low right atrial pressure of 3 mm Hg. Pericardium/ Pleura: There is no pericardial effusion. There is no pleural effusion. 2D and M-Mode Measurements and Calculations LVIDd: 4.2 cm LVOT diam: 1.80 cm LVIDs: 2.7 cm Ao root diam: 3.0 cm IVSd: 0.78 cm asc Aorta Diam: 3.8 cm LVPWd: 0.96 cm Ao Arch Diam (Prox Trans): 3.1 cm LV mathur. diameter/BSA (cm/m^2): 2.8 LV sys. diameter/BSA (cm/m^2): 1.81 RVD1 (basal): 2.8 cm IVC diam: 1.62 cm TAPSE: 2.29 cm LA A4 area: 17.4 head of ethics and compliance? RA area: 15.5 head of ethics and compliance? LA A2 area: 17.9 head of ethics and compliance? RA long axis: 4.3 cm LA length (vol): 5.0 cm RA vol: 47.6 ml LA vol: 52.8 ml RA : 31.5 ml/mA? LA vol index: 34.9 ml/mA? Doppler Measurements and Calculations Ao V2 max: 127.3 cm/sec LVOT Max Peterson: 118.4 cm/sec Ao V2 mean: 87.4 cm/sec LV V1 max P.6 mmHg Ao V2 VTI: 26.3 cm LV V1 VTI: 22.5 cm Ao max P.5 mmHg Ao mean P.5 mmHg CLEMENTE(I,D): 2.17 head of ethics and compliance? CLEMENTE(V,D): 2.37 head of ethics and compliance? CLEMENTE indexed to BSA (cm^2/m^2): 1.44 sev ratio: 0.86 AI P1/2t: 811.7 msec AI dec slope: 138.7 cm/secA? MV E max peterson: 73.2 cm/sec MV dec time: 0.22 sec MV A max peterson: 108.1 cm/sec MV E/A: 0.68 Med Peak E' Peterson: 4.7 cm/sec Lat Peak E' Peterson: 9.4 cm/sec E/e' average: 11.6 TR max peterson: 256.7 cm/sec PA mean P.77 mmHg TR max P.4 mmHg PA V2 max: 93.0 cm/sec Electronically signed by: Sia Sanchez M.D. 07/24/2021, 1: 03 AM
== END ==
PROVIDERS: PCP Family Medicine; Referring Provider Family Medicine; Visit Provider Family Medicine
DX: I08.3 Combined rheumatic disorders of mitral, aortic and tricuspid valves (principal); I77.89 Other specified disorders of arteries and arterioles; I10 Essential (primary) hypertension
CPT/HCPCS: 93306

== ENCOUNTER → 2021-10-07 16:29 | Outpatient (CLI) | payer MEDICARE, SELFPAY ==
--- NOTE | 2021-10-07 16:31 | DI.MG.S_ITS ---
BILATERAL DIGITAL SCREENING MAMMOGRAM 3D/2D WITH CAD: 10/07/2021 CLINICAL: Routine screening. Family history of breast cancer. Comparison is made to exams dated: 10/06/2020 mammogram, 07/15/2019 mammogram, 04/16/2017 mammogram, and 05/04/2018 mammogram - [facility]. There are scattered fibroglandular elements in both breasts. Current study was also evaluated with a Computer Aided Detection (CAD) system. There are benign calcifications in both breasts. No significant masses, calcifications, or other findings are seen in either breast. There has been no significant interval change. IMPRESSION: BENIGN There is no mammographic evidence of malignancy. A 1 year screening mammogram is recommended. This exam was interpreted at Station ID: [id number]. NOTE: For mammograms, a report in lay terms will be sent to the patient. Approximately 15% of breast malignancies will not be visualized mammographically. In the management of a palpable breast mass, a negative mammogram must not discourage biopsy of a clinically suspicious lesion. Electronically Signed By: Leta garber/mayela:10/08/2021 09:29:46 letter sent: Normal Exam ACR BI-RADS Category 2: Benign Finding(s) 3342F
== END ==
PROVIDERS: PCP Family Medicine; Referring Provider Family Medicine; Visit Provider Family Medicine
DX: Z12.31 Encounter for screening mammogram for malignant neoplasm of breast (principal); Z80.3 Family history of malignant neoplasm of breast
CPT/HCPCS: 77063; 77067

== ENCOUNTER → 2022-01-17 10:42 | Outpatient (CLI) | payer MEDICARE, SELFPAY ==
--- NOTE | 2022-01-17 | DI.RAD.S_ITS ---
PROCEDURE: XR DEXA AXIAL SKELETON INDICATIONS: Age-related osteoporosis COMPARISON: None. FINDINGS: This blank DEXA report has been sent in error by the PACS system. The correct and complete report will be forthcoming in 1-2 days. Thank you for your patience and understanding. Dictated by: Brandi Cosme MD, PhD on 01/18/2022 at 7:41 Approved by: Brandi Cosme MD, PhD on 01/18/2022 at 7:42
== END ==
PROVIDERS: PCP Family Medicine; Referring Provider Family Medicine; Visit Provider Family Medicine
DX: M81.0 Age-related osteoporosis without current pathological fracture (principal); Z78.0 Asymptomatic menopausal state; Z90.722 Acquired absence of ovaries, bilateral; Z82.62 Family history of osteoporosis
CPT/HCPCS: 77080

== ENCOUNTER → 2022-10-13 15:17 | Outpatient (CLI) | payer MEDICARE, SELFPAY ==
--- NOTE | 2022-10-13 15:19 | DI.MG.S_ITS ---
BILATERAL DIGITAL SCREENING MAMMOGRAM 3D/2D WITH CAD: 10/13/2022 CLINICAL: Routine screening. Family history of breast cancer. Comparison is made to exams dated: 10/07/2021 mammogram, 10/06/2020 mammogram, 07/15/2019 mammogram, and 05/04/2018 mammogram - [facility]. There are scattered areas of fibroglandular density in both breasts (category b / 25%-50% glandular tissue). Current study was also evaluated with a Computer Aided Detection (CAD) system. There are benign calcifications in both breasts. No significant masses, calcifications, or other findings are seen in either breast. There has been no significant interval change. IMPRESSION: BENIGN There is no mammographic evidence of malignancy. A 1 year screening mammogram is recommended. Based on the Tyrer Cuzick model (a risk assessment model) the patient's lifetime risk is 2.2% and her 10 year risk is 0.0%. According to the ACR, ACS, and NCCN guidelines, an annual breast MRI exam along with mammogram is recommended if the patient's lifetime risk is 20% or greater. This exam was interpreted at Station ID: [id number]. NOTE: For mammograms, a report in lay terms will be sent to the patient. Approximately 15% of breast malignancies will not be visualized mammographically. In the management of a palpable breast mass, a negative mammogram must not discourage biopsy of a clinically suspicious lesion. Electronically Signed By: Alfie gaming/mayela:10/13/2022 21:25:37 letter sent: Normal Exam ACR BI-RADS Category 2: Benign Finding(s) 3342F
== END ==
PROVIDERS: PCP Family Medicine; Referring Provider Family Medicine; Visit Provider Family Medicine
DX: Z12.31 Encounter for screening mammogram for malignant neoplasm of breast (principal); Z80.3 Family history of malignant neoplasm of breast
CPT/HCPCS: 77063; 77067

== ENCOUNTER → 2023-04-16 10:11 | Outpatient (CLI) | payer MEDICARE, SELFPAY ==
--- NOTE | 2023-04-16 | DI.CT.S_ITS ---
PROCEDURE: CT ANGIO CHEST PE PROTOCOL INDICATIONS: Shortness of breath TECHNIQUE: After the administration of intravenous contrast, 2 mm thick sections acquired from the pulmonary apices to the posterior costophrenic angles. 3-dimensional maximum intensity projection (MIP) coronal and sagittal reformats were then acquired through the thorax. For radiation dose reduction, the following was used: automated exposure control, adjustment of mA and/or kV according to patient size. COMPARISON: None. FINDINGS: Image quality: Excellent. Pulmonary arteries: Pulmonary arteries are normal in size, and demonstrate no intraluminal filling defects to suggest central pulmonary embolism. Lungs and pleura: Lungs are clear. No pleural effusions or pneumothorax. Central and peripheral airways are patent. Scattered solid pulmonary nodules. Examples include: -4 millimeter solid nodule, left lower lobe (series 6, image 134). 4 millimeter solid nodule, left lower lobe (series 6, image 163) Mediastinum: Heart size is enlarged, without pericardial effusion. Mild coronary artery calcification. No mediastinal or hilar adenopathy. Thoracic aorta is normal in caliber and enhancement. Esophagus is normal in caliber, without hiatal hernia. Bones and chest wall: No suspicious bony lesions. Ribs and thoracic spine appear intact throughout. Thyroid gland is unremarkable. No axillary or supraclavicular adenopathy. Compression deformity of the T10 and T9 vertebral bodies, without endplate retropulsion. Low bone mineralization. Abdomen: Visualized upper abdominal solid organs appear normal in the early arterial phase of enhancement. IMPRESSION: No pulmonary embolus. No findings to explain the patient's shortness of breath. A few solid nodules, measuring no greater than 4 millimeters. Consider 12 month follow-up if at high risk for developing lung cancer, per Fleischner Society guidelines. Chronic compression deformities of the T9 and T10 vertebral bodies, without endplate retropulsion. Low bone mineralization. Dictated by: Satnam Saldivar M.D. on 04/16/2023 at 11:15 Approved by: Satnam Saldivar M.D. on 04/16/2023 at 11:29
== END ==
PROVIDERS: PCP Family Medicine; Referring Provider Family Medicine; Visit Provider Family Medicine
DX: R06.02 Shortness of breath (principal)
CPT/HCPCS: 71275; Q9967

== ENCOUNTER → 2023-05-25 10:45 | Outpatient (ROUT) | payer MEDICARE, SELFPAY ==
[2023-05-25 11:16] LABS: Troponin I < 0.012 ng/mL (0.01-0.034)
== END ==
PROVIDERS: PCP Family Medicine; Visit Provider Family Medicine
DX: R10.11 Right upper quadrant pain (principal); R06.09 Other forms of dyspnea; I10 Essential (primary) hypertension
CPT/HCPCS: 84484

== ENCOUNTER → 2023-05-25 10:52 | Outpatient (CLI) | payer MEDICARE, SELFPAY ==
--- NOTE | 2023-05-25 | DI.RAD.S_ITS ---
PROCEDURE: XR CHEST 2V INDICATIONS: Dyspnea, unspecified TECHNIQUE: 2 views of the chest were acquired. COMPARISON: [facility], CR, XR CHEST 2V, 06/20/2021, 12:21. FINDINGS: Surgical changes and devices: None. Lungs and pleura: Lungs are clear. No pleural effusions or pneumothorax. Mediastinum: Mediastinal contours are normal. Heart size is normal. Bones and chest wall: No suspicious bony abnormalities. Soft tissues appear unremarkable. IMPRESSION: No acute cardiopulmonary findings. Dictated by: Mahi Zarco M.D. on 05/25/2023 at 14:27 Approved by: Mahi Zarco M.D. on 05/25/2023 at 14:28
== END ==
PROVIDERS: PCP Family Medicine; Referring Provider Family Medicine; Visit Provider Family Medicine
DX: R06.09 Other forms of dyspnea (principal); R10.11 Right upper quadrant pain; I10 Essential (primary) hypertension
CPT/HCPCS: 71046; 84484

== ENCOUNTER → 2023-05-27 12:30 | Outpatient (CLI) | payer MEDICARE, SELFPAY ==
[2023-05-27 13:33] LABS: NT-proBNP (BNP-Adult 18+) 153 pg/mL (<450)
== END ==
PROVIDERS: PCP Family Medicine; Referring Provider Internal Medicine; Visit Provider Internal Medicine
DX: R06.02 Shortness of breath (principal)
CPT/HCPCS: 36415; 83880; 99215

== ENCOUNTER → 2023-05-28 06:44 | Outpatient (CLI) | payer MEDICARE, SELFPAY ==
--- NOTE | 2023-05-28 | DI.US.S_ITS ---
PROCEDURE: US ABDOMEN LIMITED INDICATIONS: RUQ ABDOMINAL PAIN TECHNIQUE: Real-time focused scanning was performed of the abdomen, with image documentation. COMPARISON: , CT, CT ANGIO CHEST PE PROTOCOL, 04/16/2023, 10:23. FINDINGS: The gallbladder is normal without stones, sludge, wall thickening, or pericholecystic fluid. The extrahepatic common duct is normal caliber measuring 5 mm. No visible intrahepatic biliary dilatation. The liver is normal size and demonstrates moderate diffuse parenchymal hyperechogenicity. No visible liver mass. The visible portions of the proximal pancreas appear grossly normal. No visible free fluid in the right upper quadrant. IMPRESSION: 1. Normal gallbladder. 2. Moderate hepatic steatosis and/or other intrinsic liver disease. Dictated by: Leta Albarran M.D. on 05/28/2023 at 9:05 Approved by: Leta Albarran M.D. on 05/28/2023 at 9:08
== END ==
PROVIDERS: PCP Family Medicine; Referring Provider Family Medicine; Visit Provider Family Medicine
DX: K76.0 Fatty (change of) liver, not elsewhere classified (principal); R10.11 Right upper quadrant pain
CPT/HCPCS: 76705

== ENCOUNTER → 2023-06-04 07:57 | Outpatient (CLI) | payer MEDICARE, SELFPAY ==
--- NOTE | 2023-06-04 | DI.ECHO.S_ITS ---
[facility] +---------+ [facility] +---------+ : : [address] : : : : [id number] : : : : Phone: [phone]+ Echocardiogram Report + + :Name: JOSELITO MATHIAS Study Date: 06/04/2023 Height: 60 in : :[facility] ReadingLocation: Weight: 120 lb : : Gender: Female BSA: 1.5 m2 : :: 1940 Age: 82 yrs BP: 128/79 mmHg: :Reason For Study: SHORTNESS OF BREATH : :Ordering Physician: SIDRA, : :JEWEL Performed By: Eloina Marte : :Referring: JEWEL VALENTE : + + Interpretation Summary The ejection fraction is estimated to be 55-60%. There is mild mitral regurgitation. There is mild aortic regurgitation. There is mild tricuspid regurgitation. The right ventricular systolic pressure is estimated to be at least 29 mmHg based on an estimated right atrial pressure of 3 mm Hg. Procedure: A two-dimensional transthoracic echocardiogram with color flow and Doppler was performed. The study quality was technically adequate. Comparison is made with the echocardiogram of 07/23/2021. The patient was in sinus rhythm with heart rates between 59-75 bpm during the exam. Left Ventricle: The left ventricle is normal in size and wall thickness. The ejection fraction is estimated to be 55-60%. Left ventricular wall motion is normal. Right Ventricle: The right ventricle is normal in size and function. Atria: The left atrial size is normal. Right atrial size is normal. There is no Doppler evidence for an interatrial shunt. Mitral Valve: The mitral valve is normal in structure and function. There is mild mitral regurgitation. Aortic Valve: The aortic valve is trileaflet. There is no aortic valve stenosis. There is mild aortic regurgitation. Tricuspid Valve: The tricuspid valve is normal in structure and function. There is mild tricuspid regurgitation. The right ventricular systolic pressure is estimated to be at least 29 mmHg based on an estimated right atrial pressure of 3 mm Hg. Pulmonic Valve: The pulmonic valve leaflets are thin and pliable; valve motion is normal. There is no pulmonic valvular regurgitation. Great Vessels: The aortic root is normal size. The ascending aorta is mildly enlarged. The IVC is of normal diameter and collapses greater than 50% with a sniff. This suggests a low right atrial pressure of 3 mm Hg. Pericardium/ Pleura There is no pericardial effusion. There is no pleural effusion. MMode/2D Measurements & Calculations LVIDd: 4.4 cm LVOT diam: 2.0 cm LVIDs: 3.0 cm Ao root diam: 2.6 cm FS: 32.6 % asc Aorta Diam: 3.8 cm EPSS: 0.78 cm Ao Arch Diam (Prox Trans): 2.9 cm IVSd: 0.68 cm LVPWd: 0.80 cm LV mathur. diameter/BSA (cm/m^2): 2.9 LV sys. diameter/BSA (cm/m^2): 2.0 LA A2 area: 15.0 cm2 RA long axis: 4.3 cm LA A4 area: 13.1 cm2 RA area: 9.6 cm2 LA length (vol): 4.6 cm RA vol: 18.1 ml LA vol: 36.2 ml RA : 12.0 ml/m2 LA vol index: 24.1 ml/m2 IVC diam: 1.7 cm RVD1 (basal): 3.7 cm RVD2 (mid): 2.9 cm TAPSE: 2.0 cm Doppler Measurements & Calculations Ao V2 max: 133.9 cm/sec LVOT Max Peterson: 126.4 cm/sec Ao V2 mean: 95.1 cm/sec LV V1 max P.4 mmHg Ao max P.2 mmHg LV V1 VTI: 25.8 cm Ao mean P.0 mmHg CLEMENTE(I,D): 2.6 cm2 Ao V2 VTI: 31.1 cm CLEMENTE(V,D): 3.0 cm2 sev ratio: 0.83 CLEMENTE indexed to BSA (cm^2/m^2): 1.7 AI P1/2t: 585.8 msec AI dec slope: 186.3 cm/sec2 MV E max peterson: 71.9 cm/sec TR max peterson: 256.7 cm/sec MV A max peterson: 100.1 cm/sec TR max P.4 mmHg MV E/A: 0.72 PA V2 max: 94.7 cm/sec Med Peak E' Peterson: 3.8 cm/sec PA V2 mean: 64.6 cm/sec E/E' med: 18.8 PA mean P.9 mmHg Lat Peak E' Peterson: 8.7 cm/sec PA pr(Accel): 39.6 mmHg E/E' lat: 8.2 E/e' average: 13.5 MV dec time: 0.27 sec Pulm A Revs Peterson: 27.3 cm/sec SV(LVOT): 81.8 ml Pulm A Revs Dur: 0.13 sec Reading Physician:12:18 PM
--- NOTE | 2023-06-05 11:17 | DI.NM.S_ITS ---
DATE OF SERVICE: 06/04/2023 INDICATIONS: Chest pain, shortness of breath, hypertension. RADIOPHARMACEUTICAL: 26.4 millicurie technetium-99m Myoview IV was injected at stress and 11.9 millicurie technetium-99m Myoview IV was injected at rest. CARDIAC STRESS: The patient underwent initially exercise stress test. She walked on Mathew protocol for 6 minutes and 28 seconds under the supervision of an attending staff, but achieved only 79% of target heart rate. Resting blood pressure was 120/70 and peak blood pressure 160/78. ALIS -35%. METs 7. No chest pain. As target heart rate was not met, patient was converted to Lexiscan stress test. She was given IV Lexiscan as per protocol. She continued to walk on treadmill. During stress no convincing ischemic changes. Resting rhythm was sinus with first-degree AV block. Rare PVCs. During Lexiscan, had some shortness of breath. RAW DATA: There is increased subdiaphragmatic activity. GATED STUDY: Resting LV ejection fraction 83 and stress LV ejection fraction 95%. No significant wall motion abnormalities. Resting end- diastolic volume 71 mL. TID ratio 0.66, which is within normal limits. Lung/heart ratio 0.44, which is within normal limits. MYOCARDIAL PERFUSION SCAN: Stress supine, resting supine, and stress prone images were compared to each other. Resting supine and stress supine images revealed small size, mildly decreased perfusion of distal inferior wall extending into the inferoapex, which got resolved during stress prone images suggestive of tissue attenuation artifact. No convincing ischemia or infarction. CONCLUSION: I will call this study a normal myocardial perfusion study with evidence of diaphragmatic tissue attenuation artifact, which got resolved during prone images. Initially walked on Mathew protocol for 6 minutes and 28 seconds. Good exercise tolerance. ALIS -35%, MET seven, however, achieved only 79% of target heart rate. That is why patient was given IV Lexiscan. Preserved left ventricular function. Overall, low-risk study. The patient had exercise perfusion study in May 2021. At that time, also, she had normal myocardial perfusion, and she was able to walk for 4 minutes and 47 seconds. [facility] - YADIRA/aashish/angelo doc#: [id number]/job#: [id number] dd: 06/04/2023 17:04:00 dt: 06/05/2023 02:13:00 DICTATING MD/COPIES TO: Brittany Sanchez MD COPIES MNE: SHEILA;
== END ==
PROVIDERS: PCP Family Medicine; Referring Provider Family Medicine; Visit Provider Family Medicine
DX: I08.3 Combined rheumatic disorders of mitral, aortic and tricuspid valves (principal); R07.9 Chest pain, unspecified; R06.02 Shortness of breath; I77.89 Other specified disorders of arteries and arterioles; I10 Essential (primary) hypertension
CPT/HCPCS: 78452; 93017; 93306; A9502; J2785

== ENCOUNTER → 2023-06-10 13:22 | Outpatient (CLI) | payer MEDICARE, SELFPAY ==
--- NOTE | 2023-06-19 15:16 | PM.PFT.1 ---
Pulmonary Function Test Referral & Results Date Patient Seen: 06/10/23 Results: The spirometry demonstrates an FVC of 1.86 L which is 88% of predicted. The FEV1 was measured at 1.60 L which is 104% of predicted. The FEV1/FVC ratio was 86 which is 116% of predicted. Following the administration of bronchodilator there was no notable change to above normal numbers. Lung volumes show an SVC of 2.04 L which is 91% of predicted. The diffusing capacity was measured at 11.96 which is 63% of predicted. No hemoglobin value was provided, so no correction for potential anemia could be made, if appropriate. The maximum voluntary ventilation was normal Interpretation: This study demonstrates normal spirometry Diffusing capacity is moderately reduced suggesting the presence of disease at the capillary alveolar level, unless patient is anemic as above Clinical correlation suggested
== END ==
PROVIDERS: PCP Family Medicine; Referring Provider Internal Medicine; Visit Provider Internal Medicine
DX: R06.02 Shortness of breath (principal); J98.8 Other specified respiratory disorders
CPT/HCPCS: 94060; 94726; 94729

== ENCOUNTER → 2023-07-31 08:14 | Outpatient (CLI) | payer MEDICARE, SELFPAY ==
--- NOTE | 2023-07-31 08:15 | DI.CT.S_ITS ---
PROCEDURE: CT HEAD/BRAIN WO CON INDICATIONS: RIGHT FACIAL PAIN, HEADACHE TECHNIQUE: Noncontrast 4.5 mm thick angled axial sections acquired from the foramen magnum to the vertex, with coronal and sagittal reformats. For radiation dose reduction, the following was used: automated exposure control, adjustment of mA and/or kV according to patient size. COMPARISON: None. FINDINGS: Image quality: Excellent. CSF spaces: Basal cisterns are patent. No extra-axial fluid collections. The ventricles are symmetric in size and shape. Brain: No intracranial bleeds or masses. There is cerebral volume loss for age, with resultant ventricular and sulcal prominence. There are periventricular and deep white matter chronic small vessel ischemic changes. There is intracranial internal carotid artery atherosclerosis. Skull and face: Calvarium and visualized facial bones appear intact, without suspicious lesions. Sinuses: Visualized sinuses and mastoids are clear. IMPRESSION: 1. No acute intracranial abnormality. 2. Cerebral volume loss and small vessel ischemic changes. Dictated by: Krishna Doherty M.D. on 07/31/2023 at 10:02 Approved by: Krishna Doherty M.D. on 07/31/2023 at 10:05
--- NOTE | 2023-07-31 08:15 | DI.CT.S_ITS ---
PROCEDURE: CT FACIAL BONES WO CON INDICATIONS: RIGHT FACIAL PAIN, HEADACHE TECHNIQUE: Noncontrast 2.5 mm thick axial images acquired from the mandible through the frontal sinuses, with coronal and sagittal reformatting. For radiation dose reduction, the following was used: automated exposure control, adjustment of mA and/or kV according to patient size. COMPARISON: None. FINDINGS: Image quality: Excellent. Bones and teeth: Orbital lindsey are intact. Sinus lindsey show no fracture or deformity. Nasal bones and septum are intact. Visualized portions of the mandible demonstrate no fractures or subluxation. Zygomatic arches are intact. Pterygoid plates are intact. Visualized portions of the skull base and auditory canals are intact. Sinuses: Paranasal sinuses are aerated, without fluid levels, mucosal thickening, or mucoceles. Mastoid air cells are aerated. Soft tissues: No edema, masses, or fluid collections. No enlarged lymph nodes. No soft tissue lacerations or debris. Vascular: Visualized vascular structures appear normal in the absence of contrast. Bony vascular foramina and canals are intact. Mild degenerative changes of the temporomandibular joints. IMPRESSION: 1. No abnormality is identified to explain right-sided facial pain. 2. Mild degenerative changes of the temporomandibular joints. Dictated by: Krishna Doherty M.D. on 07/31/2023 at 9:54 Approved by: Krishna Doherty M.D. on 07/31/2023 at 10:02
== END ==
PROVIDERS: PCP Family Medicine; Referring Provider Family Medicine; Visit Provider Family Medicine
DX: I65.23 Occlusion and stenosis of bilateral carotid arteries (principal); R51.9 Headache, unspecified
CPT/HCPCS: 70450; 70486

== ENCOUNTER → 2023-10-15 15:41 | Outpatient (CLI) | payer MEDICARE, SELFPAY ==
--- NOTE | 2023-10-15 15:43 | DI.MG.S_ITS ---
BILATERAL DIGITAL SCREENING MAMMOGRAM 3D/2D WITH CAD: 10/15/2023 CLINICAL: Routine screening. Family history of breast cancer. Comparison is made to exams dated: 10/13/2022 mammogram, 10/07/2021 mammogram, and 10/06/2020 mammogram - [facility]. Both breasts are heterogeneously dense, which may obscure small masses (category c / 51-75% glandular tissue). Current study was also evaluated with a Computer Aided Detection (CAD) system. No significant masses, calcifications, or other findings are seen in either breast. IMPRESSION: NEGATIVE There is no mammographic evidence of malignancy. A 1 year screening mammogram is recommended. Based on the Tyrer Cuzick model (a risk assessment model) the patient's lifetime risk is 1.6% and her 10 year risk is 0.0%. According to the ACR, ACS, and NCCN guidelines, an annual breast MRI exam along with mammogram is recommended if the patient's lifetime risk is 20% or greater. This exam was interpreted at Station ID: [id number]. NOTE: For mammograms, a report in lay terms will be sent to the patient. Approximately 15% of breast malignancies will not be visualized mammographically. In the management of a palpable breast mass, a negative mammogram must not discourage biopsy of a clinically suspicious lesion. Electronically Signed By: Ellyn Wagner M.D., PH.D shanna/mayela:10/18/2023 00:27:44 letter sent: Normal Exam ACR BI-RADS Category 1: Negative 3341F
== END ==
PROVIDERS: PCP Family Medicine; Referring Provider Family Medicine; Visit Provider Family Medicine
DX: Z12.31 Encounter for screening mammogram for malignant neoplasm of breast (principal); Z80.3 Family history of malignant neoplasm of breast
CPT/HCPCS: 77063; 77067

== ENCOUNTER → 2024-03-28 13:56 | Outpatient (CLI) | payer MEDICARE, SELFPAY ==
--- NOTE | 2024-03-28 13:58 | DI.RAD.S_ITS ---
PROCEDURE: XR CHEST 2V INDICATIONS: COUGH TECHNIQUE: 2 views of the chest were acquired. COMPARISON: [facility], CR, XR CHEST 2V, 05/25/2023, 10:48. FINDINGS: Surgical changes and devices: None. Lungs and pleura: Lungs are clear. No pleural effusions or pneumothorax. Mediastinum: Mediastinal contours are normal. Heart size is normal. Bones and chest wall: No suspicious bony abnormalities. Soft tissues appear unremarkable. Unchanged midthoracic compression deformity. IMPRESSION: No acute pulmonary process. Dictated by: Gayle Palacio M.D. on 03/28/2024 at 16:03 Approved by: Gayle Palacio M.D. on 03/28/2024 at 16:03
== END ==
PROVIDERS: PCP Family Medicine; Referring Provider Family Medicine; Visit Provider Family Medicine
DX: R05.2 Subacute cough (principal)
CPT/HCPCS: 71046

== ENCOUNTER → 2024-05-10 11:04 | Outpatient (CLI) | payer MEDICARE, SELFPAY ==
--- NOTE | 2024-05-10 | DI.RAD.S_ITS ---
PROCEDURE: XR CHEST 2V INDICATIONS: Subacute cough TECHNIQUE: 2 views of the chest were acquired. COMPARISON: [facility], CR, XR THORACIC SPINE 2V, 09/30/2018, 10:15. [facility], CR, XR CHEST 2V, 05/25/2023, 10:48. [facility], CR, XR CHEST 2V, 03/28/2024, 14:19. FINDINGS: Surgical changes and devices: None. Lungs and pleura: Lungs are clear. No pleural effusions or pneumothorax. Mediastinum: Mediastinal contours are normal. Heart size is normal. Bones and chest wall: No change in T10 compression fracture. No suspicious bony abnormalities. Soft tissues appear unremarkable. IMPRESSION: No acute cardiopulmonary disease. Dictated by: Gasper Chaudhary RRA Interpreted: Gayle Palacio MD on 05/10/2024 at 11:43 Transcribed by: BILL on 05/10/2024 at 11:45 Approved by: Gayle Palacio M.D. on 05/10/2024 at 21:35
== END ==
PROVIDERS: PCP Family Medicine; Referring Provider Family Medicine; Visit Provider Family Medicine
DX: R05.2 Subacute cough (principal)
CPT/HCPCS: 71046

== ENCOUNTER → 2024-06-01 08:58 | Outpatient (CLI) | payer MEDICARE, SELFPAY ==
--- NOTE | 2024-06-01 10:00 | DI.CT.S_ITS ---
PROCEDURE: CT ABDOMEN PELVIS WO/W CON INDICATIONS: HEMATURIA TECHNIQUE: Optional 5 mm thick noncontrast images acquired from the diaphragm to the symphysis pubis. After the administration of intravenous contrast, 5 mm thick images acquired from the diaphragm to the symphysis pubis after a 10-minute delay. 2 mm thick coronal and sagittal reformats were then performed of the kidneys and ureters. For radiation dose reduction, the following was used: automated exposure control, adjustment of mA and/or kV according to patient size. COMPARISON: None. FINDINGS: Image quality: Diagnostic. Kidneys and Ureters: Both kidneys are normal in size, without hydronephrosis or nephrolithiasis. No perinephric fat stranding. There is normal bilateral renal enhancement. Renal calyces appear normal in morphology when filled with contrast. Opacified portions of both ureters demonstrate normal caliber Bladder: Bladder wall thickness is normal. No calcified bladder stones. OTHER: Lower chest: Unremarkable. Liver: No solid mass. Gallbladder: No radiopaque gallstones or wall thickening. Biliary ducts: No biliary dilation. Pancreas: No ductal dilation. Spleen: Size is within normal limits. Adrenal Glands: No adrenal nodules. Stomach and Bowel: Normal colonic caliber, without significant wall thickening. Fecal debris within the small bowel. No significant diverticular disease. Peritoneum: No abnormal intraperitoneal fluid. No free air. Ventral Wall: Small umbilical hernia containing fat. Abdominal Nodes: No retroperitoneal or mesenteric adenopathy by size criteria. Vessels: Aorta and inferior vena cava are normal in size. PELVIS: Pelvic Organs: Unremarkable. Pelvic Nodes: No enlarged lymph nodes. Miscellaneous: Trace inguinal hernias. Pelvic floor descent, with a moderate cystocele. Bones: No aggressive osseous abnormality. Grade 1 anterolisthesis L5 on S1. IMPRESSION: No nephrolithiasis or filling defects within the opacified renal collecting system or ureters. Fecal debris within the small-bowel, usually indicating small intestinal bacterial overgrowth versus slow transit. Pelvic floor descent, with a moderate cystocele. Dictated by: Satnam Saldivar M.D. on 06/01/2024 at 13:15 Approved by: Satnam Saldivar M.D. on 06/01/2024 at 13:29
== END ==
PROVIDERS: PCP Family Medicine; Referring Provider Family Medicine; Visit Provider Family Medicine
DX: K42.9 Umbilical hernia without obstruction or gangrene (principal); R31.9 Hematuria, unspecified; N81.10 Cystocele, unspecified
CPT/HCPCS: 74178; Q9967

== ENCOUNTER → 2024-06-15 16:18 | Outpatient (CLI) | payer MEDICARE, SELFPAY ==
--- NOTE | 2024-06-15 16:20 | DI.CT.S_ITS ---
PROCEDURE: CT ANGIO CHEST PE PROTOCOL INDICATIONS: CHRONIC COUGH TECHNIQUE: After the administration of intravenous contrast, 2 mm thick sections acquired from the pulmonary apices to the posterior costophrenic angles. 3-dimensional maximum intensity projection (MIP) coronal and sagittal reformats were then acquired through the thorax. For radiation dose reduction, the following was used: automated exposure control, adjustment of mA and/or kV according to patient size. COMPARISON: [facility], CT, CT ANGIO CHEST PE PROTOCOL, 04/16/2023, 10:23. FINDINGS: Image quality: Diagnostic. Pulmonary arteries: Pulmonary arteries are normal in size, and demonstrate no intraluminal filling defects to suggest central pulmonary embolism. Lower Neck: No enlarged lymph nodes. Thyroid: No thyroid nodules which require sonographic follow up, per consensus guidelines. Axillae: No enlarged lymph nodes. Chest Wall: Unremarkable. Bones: No acute fracture. No aggressive appearing lytic or blastic osseous lesion. Stable compression deformity of T9 and T10 with no significant osseous retropulsion with approximately 30 percent and 40 percent height loss respectively. Exaggerated thoracic kyphosis. Diffuse osseous demineralization.. Lungs and Pleura: No pneumothorax or pleural effusions. Compared to CT a chest dated April 16, 2023, no new or enlarging solid pulmonary nodule or consolidation. Stable right upper lobe medial, solid noncalcified pulmonary nodule measuring 4 mm (5/138), previously 4 mm (6/123). Stable right lower lobe subpleural solid, noncalcified pulmonary nodule measuring 3 mm (5/209), previously 3 mm (6/177) although less conspicuous secondary to atelectasis. Two stable left lower lobe solid, noncalcified pulmonary nodules measuring 2-3 mm (5/163, 5/164). Additional left lower lobe solid, noncalcified pulmonary nodule measuring 3 mm which is stable (5/155). Patent central airways. Mild biapical pleural parenchymal scarring and scattered linear atelectasis/scar. Heart: Heart size is normal. No pericardial effusion. Thoracic Vessels: Ascending thoracic aorta is borderline ectatic measuring 4 x 3.9 cm (4/70). Descending thoracic aorta is tortuous. Mediastinum and Sharri: No enlarged lymph nodes. Esophagus: No wall thickening. Small hiatal hernia. Upper Abdomen: Visualized upper abdomen solid organs and bowel loops appear normal. Mild calcification of the abdominal aorta and visualized splenic vasculature. IMPRESSION: 1. No pulmonary embolism or CT findings to explain patient's shortness of breath. 2. No new or enlarging solid pulmonary nodule or consolidation. Multiple scattered for the solid, noncalcified pulmonary nodules demonstrate 1 year stability, benign. 3. No acute fracture. Diffuse osseous demineralization with chronic compression deformities of T9 and T10 with no significant osseous retropulsion. 4. Small hiatal hernia. Patent central airways. 5. Ascending thoracic aorta is borderline ectatic measuring 4 x 3.9 cm, stable. Dictated by: Dread Ureña M.D. on 06/16/2024 at 9:56 Approved by: Dread Ureña M.D. on 06/16/2024 at 10:09
== END ==
PROVIDERS: PCP Family Medicine; Referring Provider Family Medicine; Visit Provider Family Medicine
DX: R91.8 Other nonspecific abnormal finding of lung field (principal); R05.3 Chronic cough; K44.9 Diaphragmatic hernia without obstruction or gangrene
CPT/HCPCS: 71275; Q9967

== ENCOUNTER → 2024-10-17 15:33 | Outpatient (CLI) | payer MEDICARE, SELFPAY ==
--- NOTE | 2024-10-17 15:34 | DI.MG.S_ITS ---
BILATERAL DIGITAL SCREENING MAMMOGRAM 3D/2D WITH CAD: 10/17/2024 CLINICAL: Routine screening. Family history of breast cancer. Comparison is made to exams dated: 10/15/2023 mammogram, 10/13/2022 mammogram, 10/07/2021 mammogram, and 10/06/2020 mammogram - [facility]. There are scattered areas of fibroglandular density (category b / 25%-50% glandular tissue). Current study was also evaluated with a Computer Aided Detection (CAD) system. No significant masses, calcifications, or other findings are seen in either breast. There has been no significant interval change. IMPRESSION: NEGATIVE There is no mammographic evidence of malignancy. A 1 year screening mammogram is recommended. Based on the Tyrer Cuzick model (a risk assessment model) the patient's lifetime risk is 0.8% and her 10 year risk is 0.0%. According to the ACR, ACS, and NCCN guidelines, an annual breast MRI exam along with mammogram is recommended if the patient's lifetime risk is 20% or greater. This exam was interpreted at Station ID: [id number]. NOTE: For mammograms, a report in lay terms will be sent to the patient. Approximately 15% of breast malignancies will not be visualized mammographically. In the management of a palpable breast mass, a negative mammogram must not discourage biopsy of a clinically suspicious lesion. Electronically Signed By: Alfie gaming/mayela:10/18/2024 09:19:34 letter sent: Normal Exam ACR BI-RADS Category 1: Negative
== END ==
PROVIDERS: PCP Family Medicine; Referring Provider Family Medicine; Visit Provider Family Medicine
DX: Z12.31 Encounter for screening mammogram for malignant neoplasm of breast (principal); Z80.3 Family history of malignant neoplasm of breast
CPT/HCPCS: 77063; 77067

== ENCOUNTER → 2025-01-16 11:55 | Outpatient (CLI) | payer MEDICARE, SELFPAY ==
--- NOTE | 2025-01-16 11:58 | DI.RAD.S_ITS ---
PROCEDURE: XR CHEST 2V INDICATIONS: COUGH TECHNIQUE: 2 views of the chest were acquired. COMPARISON: [facility], CR, XR CHEST 2V, 05/10/2024, 11:12. FINDINGS: Surgical changes and devices: None. Lungs and pleura: Lungs are clear. No pleural effusions or pneumothorax. Mediastinum: Mediastinal contours are normal. Heart size is normal. Bones and chest wall: There is marked exaggeration of thoracic kyphosis with chronic appearing compression fracture deformity noted at the T10 vertebral body resulting in between 25 and 50% anterior height loss. No suspicious bony abnormalities. Soft tissues appear unremarkable. IMPRESSION: No acute cardiopulmonary abnormality is seen. Dictated by: Tyler Goel M.D. on 01/17/2025 at 5:14 Approved by: Tyler Goel M.D. on 01/17/2025 at 5:14
== END ==
PROVIDERS: PCP Family Medicine; Referring Provider Family Medicine; Visit Provider Family Medicine
DX: R05.3 Chronic cough (principal)
CPT/HCPCS: 71046

== ENCOUNTER → 2025-08-24 08:27 | Outpatient (CLI) | payer MEDICARE, SELFPAY ==
--- NOTE | 2025-08-24 08:29 | DI.US.S_ITS ---
PROCEDURE: US AORTA LIMITED INDICATIONS: AORTA/ILIAC DUPLEX FOR RIGHT ILIAC ARTERY STENT TECHNIQUE: Real time scanning was performed of the aorta and iliac arteries, with image documentation. COMPARISON: Outside Facility, US, US AORTA LIMITED, 09/05/2024, 6:42. FINDINGS: No infrarenal aortic aneurysm. Maximum aortic diameter measures 2.2 cm. Maximum velocity measures 133.8 centimeter/second. There is a right common iliac stent present. Velocity measures 171 centimeter/second, with triphasic waveform. Distal to the stent, velocity measures 173.5 centimeters/second with a triphasic waveform. External iliac velocities measure 160 through 180 centimeter/second. Common femoral artery velocity measures 142 centimeter/second. Patent left lower extremity vasculature, without hemodynamically significant stenosis. IMPRESSION: Patent right common iliac stent, without hemodynamically significant stenosis. Dictated by: Satnam Saldivar M.D. on 08/26/2025 at 14:04 Approved by: Satnam Saldivar M.D. on 08/26/2025 at 14:06
--- NOTE | 2025-08-24 08:29 | DI.US.S_ITS ---
PROCEDURE: US CAROTID DOPPLER BI INDICATIONS: right iliac artery stenosis TECHNIQUE: Color and pulse Doppler interrogation was performed of both carotid systems, with image documentation and velocity measurements. COMPARISON: [facility], US, US CAROTID DOPPLER BI, 05/03/2021, 9:20. FINDINGS: Stenosis calculations are based on SRU (Society of Radiologists in Ultrasound) criteria. Right side: Common carotid artery peak systolic velocity: 63 cm/sec. Internal carotid artery peak systolic velocity: 88 cm/sec. Internal carotid artery end diastolic velocity: 27 cm/sec. External carotid artery peak systolic velocity: 77 cm/sec. ICA/CCA peak systolic ratio: 1.4 . Chiang scale imaging description: Predominantly hypoechoic, sessile plaque is present at the right carotid bulb extending into the internal carotid artery causing mild subjective luminal stenosis and spectral broadening of the proximal ICA waveform. Percent internal carotid artery stenosis: Less than 50% . Vertebral artery: Flow direction is antegrade. Left side: Common carotid artery peak systolic velocity: 73 cm/sec. Internal carotid artery peak systolic velocity: 100 cm/sec. Internal carotid artery end diastolic velocity: 32 cm/sec. External carotid artery peak systolic velocity: 77 cm/sec. ICA/CCA peak systolic ratio: 1.4 . Chiang scale imaging description: Noncalcified intimal medial thickening of the common carotid artery. Mild circumferential mixed calcified and noncalcified plaque in the bulb. Mixed plaque in the proximal internal carotid artery causing mild subjective luminal stenosis but no significant spectral broadening or velocity elevation. Percent internal carotid artery stenosis: Less than 50% . Vertebral artery: Flow direction is antegrade. IMPRESSION: 1. In the right carotid artery, there is less than 50% stenosis based on peak systolic velocity criteria. 2. In the left carotid artery, there is less than 50% stenosis based on peak systolic velocity criteria. 3. Antegrade vertebral arteries. Dictated by: Leta Albarran M.D. on 08/24/2025 at 19:35 Approved by: Leta Albarran M.D. on 08/24/2025 at 19:38
== END ==
LOC: US 08:29
PROVIDERS: PCP Family Medicine; Referring Provider Physician Assistant; Visit Provider Physician Assistant
DX: I77.1 Stricture of artery (principal); I65.23 Occlusion and stenosis of bilateral carotid arteries; Z95.828 Presence of other vascular implants and grafts
CPT/HCPCS: 93880; 93978

== ENCOUNTER → 2025-10-31 15:10 | Outpatient (CLI) | payer MEDICARE, SELFPAY ==
--- NOTE | 2025-10-31 15:11 | DI.MG.S_ITS ---
MM screening mammo BI: 10/31/2025. BI-RADS: 0 CLINICAL: 85-year old female for bilateral screening mammogram. Tyrer-Cuzick lifetime risk of 0.3%. No personal or first-degree family history of breast cancer. Current reported family history of breast cancer: maternal grandmother. PRIOR EXAMS: 10/17/2024, 10/15/2023, 10/13/2022, 10/07/2021, 10/06/2020, 07/15/2019, 05/04/2018. MAMMOGRAPHY TECHNIQUE: 2D and 3D (tomosynthesis) digital mammographic views obtained, with additional images as needed for full coverage. Current study was also evaluated with a Computer Aided Detection (CAD) system. DENSITY B. There are scattered areas of fibroglandular density. MAMMOGRAPHY FINDINGS Right: No suspicious mass, asymmetry, microcalcification, or other abnormality seen. Left: Upper Outer Quadrant, Middle depth: Focal asymmetry needing additional imaging evaluation. IMPRESSION: Right * No evidence of malignancy. Left (Asymmetry): Upper Outer Quadrant, Middle depth * Incomplete - focal asymmetry needing additional imaging evaluation. RECOMMENDATIONS Left: Upper Outer Quadrant, Middle depth * Further evaluation with diagnostic mammography and diagnostic ultrasound. Ultrasound to be performed only if needed. OVERALL ASSESSMENT CATEGORY BI-RADS-0: Incomplete - Need Additional Imaging Evaluation. ELECTRONICALLY SIGNED: Janae De Santiago M.D. on 11/01/2025 at 10:57:16 AM PT Interpreting Station ID: [id number]
== END ==
LOC: MAMMO 15:11
PROVIDERS: PCP Family Medicine; Referring Provider Family Medicine; Visit Provider Family Medicine
DX: Z12.31 Encounter for screening mammogram for malignant neoplasm of breast (principal); Z80.3 Family history of malignant neoplasm of breast
CPT/HCPCS: 77063; 77067